=== PATIENT | female | born 1955 | race African-American/Black ===

== ENCOUNTER 2016-08-17 14:40 | Emergency (ER) | payer OTHER ==
[~2016-08-17 14:40] MED LIST: Iopamidol 370 76% 100 ML VIAL ONE
[2016-08-17] MEDS ORDERED: Fentanyl 100 MCG/2 ML VIAL ONE (15:20)
[2016-08-17] MEDS ORDERED: Ondansetron HCl/PF 4 MG/2 ML Vial ONE (15:20)
[2016-08-17] MEDS ORDERED: Famotidine/PF 20 mg/2ml Vial ONE (15:21)
[2016-08-17 15:48] LABS: #Basophils 0.1 thou/uL (0.0-0.2); #Eosinphils 0.1 thou/uL (0.0-0.7); #Lymphocytes 3.3 thou/uL (1.20-3.40); #Monocytes 0.4 thou/uL (0.11-0.59); #Neutrophils 4.7 thou/uL (1.40-6.50); %Basophils 1.6 % (0.0-1.0); %Eosinophils 0.6 % (0.0-10.0); %Monocytes 4.7 % (0.0-10.0); Hemoglobin 13.9 g/dL (12.0-16.0); Mean Corpuscular HGB CONC 32.5 g/dL (32.0-36.0); Mean Corpuscular Hemoglobin 29.7 pg (27.0-31.0); Mean Corpuscular Volume 91.5 fl (81.0-99.0); Mean Platelet Volume 6.4 fL (7.4-10.4); Platelet Count 351 thou/uL (130-400); RBC Distribution Width 12.3 % (11.5-14.5); Red Blood Cell (RBC) Count 4.67 mill/uL (4.20-5.40); White Blood Cell (WBC) Count 8.6 thou/uL (4.8-10.8)
[2016-08-17 15:50] LABS: Bilirubin Negative (Negative); Blood, Urine Trace (Negative); Clarity Clear (Clear); Glucose, Urine (Dipstick) Negative (Negative); Leukocyte Negative (Negative); Nitrite Negative (Negative); Protein, Urine (Dipstick) Negative (Neg-Trace); Specific Gravity, Urine 1.015 (1.005-1.030); pH, Urine 7.5 (5.0-9.0)
[2016-08-17 16:01] LABS: ALT (SGPT) 17 U/L (8-55); AST (SGOT) 25 U/L (5-34); Albumin 4.6 g/dL (3.5-5.0); Alkaline Phosphatase 84 U/L (40-150); Anion Gap 18 mmol/L (10-20); BUN (Urea Nitrogen) 14 mg/dL (9.8-20.1); Bilirubin, Total 0.4 mg/dL (0.2-1.2); Calc. Creatinine Clearance 0 mL/min (70-130); Calcium 10.3 mg/dL (7.8-10.44); Carbon Dioxide 23 mmol/L (22-29); Chloride 103 mmol/L (98-107); Estimated GFR-MDRD 52; Globulin 3.5 g/dL (2.4-3.5); Glucose 110 mg/dL (70-105); Lipase 28 U/L (8-78); Potassium 4.4 mmol/L (3.5-5.1); Protein, Total 8.1 g/dL (6.0-8.3); Sodium 140 mmol/L (136-145)
[2016-08-17 16:05] LABS: Bacteria/HPF 1+ HPF (None Seen); RBC/HPF 0-3 HPF (0-3); Squamous Epithelial 0-3 HPF (0-3)
[2016-08-17] MEDS ORDERED: Sodium Chloride 0.9% 100 ML ONE (16:29)
[2016-08-17] MEDS ORDERED: cefTRIAXone\\ROCEPHIN 1 GM VIAL ONE (16:29)
[2016-08-17 16:41] LABS: CKMB 2.9 ng/mL (0-6.6); Troponin I 0.013 ng/mL (< 0.028)
--- NOTE | 2016-08-17 18:04 | CT ---
CT ABDOMEN AND PELVIS WITH CONTRAST 08/17/16 HISTORY: Periumbilical pain since this morning. COMPARISON: None. FINDINGS: There is mild atelectatic changes in the right lower lobe. The remainder of the lung bases are unrem arkable. No pericardial effusion. There is a moderate sized sliding hiatal hernia. There is extensive cholelithiasis although the possibility exists that this is calcifications of the gallbladder which can be seen with chronic cholecystitis. There is moderate atherosclerotic plaque of the aortoiliac system. The uterus is enlarged and likely obtains numerous fibroids. No dilated lo ops of large or small bowel. Appendix is visualized and is normal. Distal common bile duct measures 7 mm, just beyond the upper limits of normal. There is extensive degenerative disease of the right hip and moderate degenerative disease of the le ft hip joint. Mild osteoarthritic disease of the lumbar spine. IMPRESSION: 1. Either extensively peripherally calcified cholelithiasis versus chronically calcified gallbl adder due to chronic cholecystitis. Surgical consultation may be helpful. 2. Normal appendix. 3. No acute inflammatory process in the abdomen or pelvis. 4. Enlarged uterus containing what appear to be numerous fibroids, although difficult to evalua te on CT. Some of these fibroids may be degenerating and causing patient pain. 5. Severe right sided hip degenerative disease with some ossified intra-articular bodies. POS: [facility]
== END 2016-08-17 18:15 | disposition home or self-care (01) ==
LOC: NAV ERS 14:40
DX: D25.9 Leiomyoma of uterus, unspecified (principal); I10 Essential (primary) hypertension; Z86.73 Personal history of transient ischemic attack (TIA), and cerebral infarction without residual deficits; Z79.899 Other long term (current) drug therapy
CPT/HCPCS: 51701; 74177; 80053; 81003; 81015; 82150; 82553; 83690; 84484; 85025; 93005; 96365; 96375; A4353; J0696; J2405; J3010; J7050; S0028

== ENCOUNTER 2017-08-28 12:42 | Emergency (ER) | payer OTHER ==
[2017-08-28 13:52] LABS: #Eosinphils 0.1 thou/uL (0.0-0.7); #Lymphocytes 2.1 thou/uL (1.20-3.40); #Monocytes 0.3 thou/uL (0.11-0.59); #Neutrophils 3.2 thou/uL (1.40-6.50); %Basophils 0.4 % (0.0-1.0); %Eosinophils 1.5 % (0.0-10.0); %Lymphocytes 36.5 % (21.0-51.0); %Monocytes 5.9 % (0.0-10.0); %Neutrophils 55.7 % (42.0-75.0); Hemoglobin 13.1 g/dL (12.0-16.0); Mean Corpuscular HGB CONC 31.4 g/dL (32.0-36.0); Mean Corpuscular Hemoglobin 27.6 pg (27.0-31.0); Mean Corpuscular Volume 87.8 fL (78.0-98.0); Mean Platelet Volume 6.6 fL (7.4-10.4); Platelet Count 308 thou/uL (130-400); RBC Distribution Width 12.9 % (11.5-14.5); Red Blood Cell (RBC) Count 4.76 mill/uL (4.20-5.40); White Blood Cell (WBC) Count 5.8 thou/uL (4.8-10.8)
[2017-08-28 14:07] LABS: ALT (SGPT) 30 U/L (8-55); AST (SGOT) 32 U/L (5-34); Albumin 4.1 g/dL (3.4-4.8); Alkaline Phosphatase 93 U/L (40-150); Anion Gap 13 mmol/L (10-20); BUN (Urea Nitrogen) 17 mg/dL (9.8-20.1); Bilirubin, Total 0.4 mg/dL (0.2-1.2); Calc. Creatinine Clearance 0 mL/min (70-130); Calcium 9.8 mg/dL (7.8-10.44); Carbon Dioxide 26 mmol/L (23-31); Chloride 106 mmol/L (98-107); Estimated GFR-MDRD 49; Globulin 3.6 g/dL (2.4-3.5); Glucose 132 mg/dL (80-115); Potassium 4.9 mmol/L (3.5-5.1); Protein, Total 7.7 g/dL (6.0-8.3); Sodium 140 mmol/L (136-145)
--- NOTE | 2017-08-28 14:25 | RAD ---
SINGLE VIEW OF THE CHEST: Comparison: 02-10-12 History: Hypertension. FINDINGS: Single view of the chest shows a normal sized cardiomediastinal silhouette. There is no evidence of c onsolidation, mass, or pleural effusion. The bones are unremarkable. IMPRESSION: No evidence of acute cardiopulmonary disease. POS: [facility]
== END 2017-08-28 15:00 | disposition home or self-care (01) ==
LOC: NAV ERS 12:42
DX: R53.1 Weakness (principal); I10 Essential (primary) hypertension; Z86.73 Personal history of transient ischemic attack (TIA), and cerebral infarction without residual deficits; Z79.899 Other long term (current) drug therapy
CPT/HCPCS: 36415; 71045; 80053; 85025; 93005